=== PATIENT | male | born 1945 | race Caucasian/White ===

== ENCOUNTER 2022-11-16 03:57 | Emergency (ER) | payer MEDICARE, SELFPAY ==
--- NOTE | ~2022-11-16 | CT_ITS ---
EXAMINATION: CT HEAD WITHOUT CONTRAST CT CERVICAL SPINE WITHOUT CONTRAST CLINICAL INFORMATION: Fall. Injury. COMPARISON: None available. TECHNIQUE: Contiguous axial imaging was performed from the skull base to vertex without intravenous administration of contrast. This CT examination was performed using dose optimization techniques as appropriate, variously including the following: *Automated exposure control *Adjustment of mA and/or kV according to patient size (this includes techniques or standardized protocols for targeted exams where dose is matched to indication/reason for exam; i.e. extremities or head) *Use of iterative reconstruction technique DLP: 1250 mGy-cm FINDINGS: There is mild cerebral volume loss with prominence of the lateral and the third ventricles. The cortical sulci are widened appropriately. The fourth ventricle and basal cisterns are normally outlined. There is no acute territorial defect, hemorrhage or midline shift. The bilateral subdural spaces are prominent. There is faint increased subchondral densities bilaterally greater on the right. There is no dense subdural hemorrhage. Cervical spine: The alignment is normal. There is diffuse bgff-fi-gdmyugej cervical disc degenerative change with loss of disc space, endplate change and posterior osteophytes associated with mild facet osteoarthritic hypertrophic change with multilevel zosq-vg-aiocnwgv spinal canal and mild to moderate bilateral neuroforaminal narrowing. There is no fracture. The soft tissues are unremarkable. The upper lung stevens are clear. CT/CT head/brain wo IV con IMPRESSION: Cerebral volume loss. Prominent subdural spaces bilaterally with faint areas of increased density. 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 No dense subdural blood products to suggest an acute subdural hematoma. Cervical disc degenerative change. No fracture or malalignment
--- NOTE | ~2022-11-16 | CT_ITS ---
EXAMINATION: CT HEAD WITHOUT CONTRAST CT CERVICAL SPINE WITHOUT CONTRAST CLINICAL INFORMATION: Fall. Injury. COMPARISON: None available. TECHNIQUE: Contiguous axial imaging was performed from the skull base to vertex without intravenous administration of contrast. This CT examination was performed using dose optimization techniques as appropriate, variously including the following: *Automated exposure control *Adjustment of mA and/or kV according to patient size (this includes techniques or standardized protocols for targeted exams where dose is matched to indication/reason for exam; i.e. extremities or head) *Use of iterative reconstruction technique DLP: 1250 mGy-cm FINDINGS: There is mild cerebral volume loss with prominence of the lateral and the third ventricles. The cortical sulci are widened appropriately. The fourth ventricle and basal cisterns are normally outlined. There is no acute territorial defect, hemorrhage or midline shift. The bilateral subdural spaces are prominent. There is faint increased subchondral densities bilaterally greater on the right. There is no dense subdural hemorrhage. Cervical spine: The alignment is normal. There is diffuse hfpp-ht-ywcxvomn cervical disc degenerative change with loss of disc space, endplate change and posterior osteophytes associated with mild facet osteoarthritic hypertrophic change with multilevel sibg-ra-huzffvru spinal canal and mild to moderate bilateral neuroforaminal narrowing. There is no fracture. The soft tissues are unremarkable. The upper lung stevens are clear. CT/CT cervical spine wo IV con IMPRESSION: Cerebral volume loss. Prominent subdural spaces bilaterally with faint areas of increased density. 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 No dense subdural blood products to suggest an acute subdural hematoma. Cervical disc degenerative change. No fracture or malalignment
--- NOTE | ~2022-11-16 | XR_ITS ---
EXAMINATION: XR PELVIS CLINICAL INFORMATION: Pain COMPARISON: None available. TECHNIQUE: AP view of the pelvis. FINDINGS: The bone mineralization is normal. The joint spaces are fairly well maintained for patient age. There is no fracture. There is lower lumbar disc degenerative change. There are bony densities along both greater trochanters which are likely chronic. Arteriovascular calcification. XR/XR pelvis 1-2V IMPRESSION: No fracture.
[2022-11-16 04:14] VITALS: BP 145/61; PULSE 96; RESP 12; TEMP 37.6; O2SAT 97; BMI 28.7
--- NOTE | 2022-11-16 04:20 | PC.NURSE ---
pt has a chronic benitez cath placed by SAE
--- NOTE | 2022-11-16 04:26 | ED_ITS ---
HPI - Fall General Chief Complaint: Fall Stated Complaint: Fall Time Seen by Provider: 11/16/22 04:22 Source: EMS and RN notes reviewed Mode of arrival: EMS Limitations: altered mental status History of Present Illness HPI Narrative: Patient with dementia came from correction as was found on the floor for 10 minutes before staff found him, patient does not remember what happened denies any significant pain patient came with cervical collar patient does have indwelling Gray catheter no fever no vomiting patient is at baseline Related Data Previous Rx's Medication Instructions Recorded cefuroxime axetil 250 mg tablet 250 mg PO BID 7 days #14 tabs 11/16/22 Allergies Allergy/AdvReac Type Severity Reaction Status Date / Time atorvastatin Allergy Unknown Verified 11/16/22 04:27 glipizide Allergy Unknown Verified 11/16/22 04:27 Review of Systems Review of Systems: Yes all other systems are reviewed and are negative [facility] Social History Social History Alcohol intake: never Smoked in Last 30 Days: No Use of substances other than those prescribed or required for medical reasons: Unknown Advance Directives: No Advance Directives Information Provided: Yes Physical Exam Vital Signs: Vital Signs: Last Vital Signs Temp 98.8 F 11/16/22 06:13 Pulse 79 11/16/22 06:13 Resp 13 11/16/22 06:13 BP 130/63 11/16/22 06:13 Pulse Ox 100 11/16/22 06:13 O2 Del Method Room Air 11/16/22 06:13 BMI result Body Mass Index 28.7 Appearance: Alert. Oriented X2. No acute distress. Eyes: PERRLA, No Nystagmus ENT: Pharynx normal. Oral Mucosa moist Neck: Normal inspection. Neck supple. No midline tenderness cervical collar in place CVS: Normal heart rate and rhythm. Pulses normal. Respiratory: No respiratory distress. Equal air entry bilateral, no wheezing/rales/rhonchi Abdomen: Soft and nontender. Bowel sounds are present, no mass palpable, no CVA tenderness Skin: Skin warm and dry. Normal skin color. Normal skin turgor. Extremities: No lower extremity edema. No calf tenderness Neuro: Oriented X 2. No motor deficit. No sensory deficit.No cerebellar signs , cranial nerves II-XII intact Medications Administered Discontinued Medications Generic Name Dose Route Start Last Admin Trade Name Freq PRN Reason Stop Dose Admin Cefuroxime Axetil 250 mg 11/16/22 06:09 11/16/22 06:18 Cefuroxime Axetil 250 Mg Tablet PO 11/16/22 06:10 250 mg ONCE ONE Administration Medical Decision Making Medical Decision Making [facility] Narrative: Patient's CT scans are negative workup showed WBCs in the urine does have a chronic indwelling Gray catheter not on antibiotics asymptomatic at this time previous culture report is not available will give patient Ceftin, advised to follow-up with PCP and follow with the cultures Differential Diagnosis Differential Diagnoses: The differential diagnosis associated with the presentation includes Subdural hematoma/surgically fractures/UTI/weakness Admission/Observation Consideration of admission/observation: Escalation of care including admissio n/observation considered Lab Data [facility] Lab Attestation statement: I reviewed the patient's lab results. 11/16/22 05:04 11/16/22 05:04 Labs: Lab Results 11/16/22 11/16/22 11/16/22 Range/Units 04:59 05:04 05:04 WBC 6.4 (4.8-10.8) X10*3/uL RBC 3.72 L (4.60-5.80) X10*6/uL Hgb 11.3 L (14.0-18.0) g/dl Hct 34.2 L (42.0-52.0) % MCV 91.9 (80.0-98.0) fL MCH 30.4 (27.0-33.0) pg MCHC 33.0 (31.0-36.0) g/dl RDW 12.9 (11.0-16.0) % Plt Count 174 D (160-400) X10*3/uL MPV 8.7 L (9.4-12.4) fL Immature Gran % (Auto) 0.3 (0.0-0.4) % Neut % (Auto) 87.0 H (45-73) % Lymph % (Auto) 5.3 L (20-40) % Harvey % (Auto) 6.1 (2-11) % Eos % (Auto) 0.5 (0-4) % Baso % (Auto) 0.8 (0-2) % Lymph # (Auto) 0.3 L (1.2-4.9) X10*3/uL Harvey # (Auto) 0.4 (0.1-1.2) X10*3/uL Eos # (Auto) 0.0 (0.0-0.4) X10*3/uL Baso # (Auto) 0.1 (0.0-0.2) X10*3/uL Abs Immat Gran (auto) 0.02 (0.00-0.03) X10*3/uL Absolute Neuts (auto) 5.6 (2.0-8.3) x10*3/uL Absolute Nucleated RBC 0.000 (0.0-0.012) X10*3/uL Nucleated RBC % (auto) 0.0 (0.0-0.2) /100WBC Sodium 143 (135-145) mmol/L Potassium 4.2 (3.3-5.1) mmol/L Chloride 107 (96-108) mmol/L Carbon Dioxide 26 (22-29) mmol/L Anion Gap 14 (12-20) BUN 34 H (9-16) mg/dL Creatinine 1.68 H (0.5-1.4) mg/dL Estim Creat Clear Calc 42.3 Estimated GFR 40 Random Glucose 140 H (60-115) mg/dL Calcium 9.8 (8.4-10.2) mg/dL Magnesium 1.5 L (1.6-2.6) mg/dL Total Bilirubin 0.8 (0.0-1.0) mg/dL AST 9 (5-37) U/L ALT 9 (0-40) U/L Alkaline Phosphatase 73 (39-117) U/L Total Protein 6.2 L (6.5-8.0) g/dL Albumin 3.5 (3.5-5.0) g/dL Urine Color Yellow Urine Appearance Turbid Urine pH 6.5 (5.0-9.0) Ur Specific [place] 1.015 (1.005-1.025) Urine Protein 100 (2+) H (Neg-Trace) mg/dL Urine Glucose (UA) Negative (Negative) mg/dL Urine Ketones Negative (Negative) mg/dL Urine Blood Large (3+) H (Negative) Urine Nitrite Negative (Negative) Ur Leukocyte Esterase Large (3+) H (Negative) Urine RBC >20 H (0-2) /HPF Urine WBC >50 H (0-5) /HPF Ur Squamous Epith Cells 0-2 (0-2) /HPF Urine Bacteria 2+ (None Seen) Hyaline Casts 0-2 (0-2) /LPF Independent Interpretation I performed an independent interpretation of an: CT Scan Radiology Impression Discussion of test interpretation with radiology: I have reviewed the radiologist's reading. Radiologist Impression: [address] [address] XRay Report Signed Patient: Deepak Anderson MR#: [id number] : 1945 Acct:[id number] Age/Sex: 77 / M ADM Date: 11/16/22 Loc: .ED Attending Dr: Ordering Physician: Rah Aden MD Date of Service: 11/16/22 Procedure(s): XR pelvis 1-2V Accession Number(s): [id number] cc: AMERICO PAK MD; Rah Aden MD~ EXAMINATION: XR PELVIS CLINICAL INFORMATION: Pain? COMPARISON: None available.? TECHNIQUE: AP view of the pelvis. FINDINGS: The bone mineralization is normal. The joint spaces are fairly well maintained for patient age. There is no fracture. There is lower lumbar disc degenerative change. There are bony densities along both greater trochanters which are likely chronic. Arteriovascular calcification.? XR/XR pelvis 1-2V IMPRESSION: No fracture. ? ? [address] [address] [address] Scan Report Signed Patient: Deepak Anderson MR#: [id number] : 1945 Acct:[id number] Age/Sex: 77 / M ADM Date: 11/16/22 Loc: .ED Attending Dr: Ordering Physician: Rah Aden MD Date of Service: 11/16/22 Procedure(s): CT cervical spine wo IV con Accession Number(s): [id number] cc: AMERICO PAK MD; Rah Aden MD~ EXAMINATION: CT HEAD WITHOUT CONTRAST CT CERVICAL SPINE WITHOUT CONTRAST CLINICAL INFORMATION: Fall. Injury.? COMPARISON: None available. TECHNIQUE: Contiguous axial imaging was performed from the skull base to vertex without intravenous administration of contrast. This CT examination was performed using dose optimization techniques as appropriate, variously including the following: *Automated exposure control *Adjustment of mA and/or kV according to patient size (this includes techniques or standardized protocols for targeted exams where dose is matched to indication/reason for exam; i.e. extremities or head) *Use of iterative reconstruction technique DLP: 1250 mGy-cm FINDINGS: There is mild cerebral volume loss with prominence of the lateral and the third ventricles. The cortical sulci are widened appropriately. The fourth ventricle and basal cisterns are normally outlined. There is no acute territorial defect, hemorrhage or midline shift. The bilateral subdural spaces are prominent. There is faint increased subchondral densities bilaterally greater on the right. There is no dense subdural hemorrhage. Cervical spine: The alignment is normal. There is diffuse uefj-vj-bubgdvzc cervical disc degenerative change with loss of disc space, endplate change and posterior osteophytes associated with mild facet osteoarthritic hypertrophic change with multilevel kfnk-gn-htpagxbc spinal canal and mild to moderate bilateral neuroforaminal narrowing. There is no fracture. The soft tissues are unremarkable. The upper lung stevens are clear. ? CT/CT cervical spine wo IV con IMPRESSION: Cerebral volume loss. Prominent subdural spaces bilaterally with faint areas of increased density. 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 ? No dense subdural blood products to suggest an acute subdural hematoma. ? Cervical disc degenerative change. ? No fracture or malalignment Discharge Plan Discharge Clinical Impression: Fall, UTI (urinary tract infection) due to urinary indwelling catheter Patient Disposition: Xfer [facility] Transfer Details: Patient's CT scan of the head, C-spine negative for any acute, x-ray of the pelvis negative for fracture, workup showed UTI with nitrite negative, will prescribe Ceftin 250 mg twice daily for 7 days advised to follow-up with PCP and the culture results Instructions: Urinary Tract Infection in Men (ED), Fall Prevention for Older A dults (ED) Additional Instructions: Fall precautions advised Give patient antibiotics as prescribed Follow with PCP Prescriptions: New cefuroxime axetil 250 mg tablet 250 mg PO BID 7 Days Qty: 14 0RF
[2022-11-16 05:09] LABS: Basophils Absolute Auto 0.1 X10*3/uL (0.0-0.2); Basophils Percent Auto 0.8 % (0-2); Eosinophils Percent Auto 0.5 % (0-4); Hematocrit 34.2 % (42.0-52.0); Hemoglobin 11.3 g/dl (14.0-18.0); Imm Gran Abs Auto 0.02 X10*3/uL (0.00-0.03); Imm Gran Pct Auto 0.3 % (0.0-0.4); Lymphocytes Absolute Auto 0.3 X10*3/uL (1.2-4.9); Lymphocytes Percent Auto 5.3 % (20-40); MANUAL DIFF FLAG NO; Mean Corpuscular Hemoglobin 30.4 pg (27.0-33.0); Mean Corpuscular Volume 91.9 fL (80.0-98.0); Mean Platelet Volume 8.7 fL (9.4-12.4); Monocytes Absolute Auto 0.4 X10*3/uL (0.1-1.2); Monocytes Percent Auto 6.1 % (2-11); Neutrophils Absolute Auto 5.6 x10*3/uL (2.0-8.3); Platelet Count 174 X10*3/uL (160-400); Red Blood Count 3.72 X10*6/uL (4.60-5.80); Red Cell Distribution Width 12.9 % (11.0-16.0); White Blood Count 6.4 X10*3/uL (4.8-10.8)
[2022-11-16 05:10] LABS: Appearance Urine Turbid; Color Urine Yellow; Glucose Urine UA Negative (Negative); Leukocyte Esterase Urine Large (3+) (Negative); Nitrite Urine Negative (Negative); PH 6.5 (5.0-9.0); Specific Gravity - Urine 1.015 (1.005-1.025); UMIC TRIGGER UACC YES; Urine Blood Large (3+) (Negative); Urine Ketones Negative (Negative); Urine Protein 100 (2+) mg/dL (Neg-Trace)
[2022-11-16 05:15] LABS: Bacteria Urine 2+ (None Seen); Hyaline Casts Urine 0-2 /LPF (0-2); RBC Urine >20 /HPF (0-2); Squamous Epithelial Cell Urine 0-2 /HPF (0-2); UACC Culture Trigger YES; WBC Urine >50 /HPF (0-5)
[2022-11-16 05:28] LABS: Alanine Aminotransferase 9 U/L (0-40); Albumin Level 3.5 g/dL (3.5-5.0); Alkaline Phosphatase 73 U/L (39-117); Anion Gap 14 (12-20); Aspartate Amino Transferase 9 U/L (5-37); Bilirubin Total 0.8 mg/dL (0.0-1.0); Blood Urea Nitrogen 34 mg/dL (9-16); Calcium 9.8 mg/dL (8.4-10.2); Carbon Dioxide 26 mmol/L (22-29); Chloride 107 mmol/L (96-108); Creatinine Clr Calc Pharmacy 42.3; Estimated Glomerular Filt Rate 40; Glucose Random 140 mg/dL (60-115); Magnesium 1.5 mg/dL (1.6-2.6); Potassium 4.2 mmol/L (3.3-5.1); Sodium 143 mmol/L (135-145); Total Protein 6.2 g/dL (6.5-8.0)
[2022-11-16 06:13] VITALS: BP 130/63; PULSE 79; RESP 13; TEMP 37.1; O2SAT 100
--- NOTE | 2022-11-16 06:58 | MHC.EDTECH ---
Call out to [facility]per at [phone] to book transport for pt back to [facility] [place], estimated eta given was within the hour
--- NOTE | 2022-11-16 07:29 | PC.NURSE ---
report given to nurse at [facility]
== END 2022-11-16 07:29 | disposition skilled nursing facility (03) ==
PROVIDERS: Emergency Provider Internal Medicine; PCP Family Medicine
DX: S09.90XA Unspecified injury of head, initial encounter (principal); M54.2 Cervicalgia; R51.9 Headache, unspecified; R10.2 Pelvic and perineal pain; W01.0XXA Fall on same level from slipping, tripping and stumbling without subsequent striking against object, initial encounter; Y93.9 Activity, unspecified; Y92.410 Unspecified street and highway as the place of occurrence of the external cause; Y99.9 Unspecified external cause status; Z79.899 Other long term (current) drug therapy
CPT/HCPCS: 36415; 70450; 72125; 72170; 80053; 81001; 83735; 85025; 87086; 99284

== ENCOUNTER 2023-01-24 02:19 | Emergency (ER) | payer MEDICARE, SELFPAY ==
[2023-01-24 02:42] VITALS: BP 132/68; BP 139/60; PULSE 58; PULSE 98; RESP 16; TEMP 36.6; O2SAT 97; O2SAT 99; BMI 22.1
--- NOTE | 2023-01-24 02:52 | PC.NURSE ---
Pt BIBA from [facility] care for pulling out Benitez catheter with balloon still inflated. When faclity RN attempted to replace catheter and reinflate balloon the patient was having pain. Per facility RN, patient had bleeding when benitez cath was removed. Pt alert and oriented to self at times. VSS< red non-blanchable coccyx. Barrier cream and pink foam dressing applied.
--- NOTE | 2023-01-24 03:00 | ED.MALEGU ---
HPI - Male Genitourinary General Chief complaint: Urogenital-Male Stated complaint: pulled benitez out Time Seen by Provider: 01/24/23 02:59 Source: EMS Mode of arrival: EMS Limitations: altered mental status History of Present Illness HPI Narrative: Patient with dementia and reportedly his catheter RN unable to place Benitez catheter , came here for Benitez catheter replacement no change in his baseline no fever Related Data Previous Rx's Medication Instructions Recorded cefuroxime axetil 250 mg tablet 250 mg PO BID 7 days #14 tabs 11/16/22 Allergies Allergy/AdvReac Type Severity Reaction Status Date / Time atorvastatin Allergy Unknown Verified 01/24/23 02:39 glipizide Allergy Unknown Verified 01/24/23 02:39 Review of Systems Review of Systems: Yes Unobtainable due to mental status [facility] Social History Social History Alcohol intake: never Smoked in Last 30 Days: No Use of substances other than those prescribed or required for medical reasons: No Any prior treatment program specific to substance use: No Advance Directives: No Advance Directives Information Provided: No Physical Exam Vital Signs: Vital Signs: Last Vital Signs Temp 97.9 F 01/24/23 02:42 Pulse 58 01/24/23 02:42 Resp 16 01/24/23 02:42 BP 139/60 01/24/23 02:42 Pulse Ox 99 01/24/23 02:42 O2 Del Method Room Air 01/24/23 02:42 BMI result Body Mass Index 22.1 Appearance: Alert. Demented Eyes: PERRLA, No Nystagmus ENT: Pharynx normal. Oral Mucosa moist Neck: Normal inspection. Neck supple. CVS: Normal heart rate and rhythm. Pulses normal. Respiratory: No respiratory distress. Equal air entry bilateral, Abdomen: Soft and nontender. Bowel sounds are present, no mass palpable, no CVA tenderness Skin: Skin warm and dry. Normal skin color. Normal skin turgor. Extremities: No lower extremity edema. No calf tenderness Neuro: alert with dementia moving all 4 extremities Medications Administered Discontinued Medications Generic Name Dose Route Start Last Admin Trade Name Freq PRN Reason Stop Dose Admin Lidocaine HCl 10 ml 01/24/23 02:59 01/24/23 03:04 Lidocaine Hcl 2 % Urojet 10 Ml Jel.Pf.Sri TOPICAL 01/24/23 03:00 10 ml ONCE ONE Administration Medical Decision Making Medical Decision Making [facility] Narrative: Benitez catheter replaced by the RN 16 [place] draining clear urine [facility] showed with elevated wbc's with no bacteria, previous cultures were negative on 11/16 Lab Data [facility] Lab Attestation statement: I reviewed the patient's lab results. Labs: Lab Results 01/24/23 Range/Units 03:20 Urine Color Yellow Urine Appearance Clear Urine pH 5.5 (5.0-9.0) Ur Specific [place] 1.015 (1.005-1.025) Urine Protein Negative (Neg-Trace) mg/dL Urine Glucose (UA) Negative (Negative) mg/dL Urine Ketones Negative (Negative) mg/dL Urine Blood Small (1+) H (Negative) Urine Nitrite Negative (Negative) Ur Leukocyte Esterase Small (1+) H (Negative) Urine RBC 6-10 H (0-2) /HPF Urine WBC 21-50 H (0-5) /HPF Ur Squamous Epith Cells 0-2 (0-2) /HPF Urine Bacteria None Seen (None Seen) Hyaline Casts 0-2 (0-2) /LPF Discharge Plan Discharge Clinical Impression: Encounter for Benitez catheter replacement Patient Disposition: Xfer [facility] Transfer Details: 16 [place] Benitez catheter was placed without any difficulty UA negative for bacteria Instructions: Benitez Catheter Placement and Care (ED) Prescriptions: No Action cefuroxime axetil 250 mg tablet 250 mg PO BID 7 Days Qty: 14 0RF Interventions: ED Discharge Assessment Last Done: 01/24/23 04:25 Discharge Date/Time: 01/24/23 04:25
[2023-01-24] MEDS: Lidocaine HCl 2 % Urojet 10 ML JEL.PF.APP TOPICAL (03:04)
--- NOTE | 2023-01-24 03:25 | PC.NURSE ---
This RN placed 16F benitez cath, pt tolerated fairly well, with minimal discomfort. Lidocaine uro-jet used as ordered. UA sent down to lab. Benitez cath tubing secure in place.
[2023-01-24 03:28] LABS: Appearance Urine Clear; Color Urine Yellow; Glucose Urine UA Negative (Negative); Leukocyte Esterase Urine Small (1+) (Negative); Nitrite Urine Negative (Negative); PH 5.5 (5.0-9.0); Specific Gravity - Urine 1.015 (1.005-1.025); UMIC TRIGGER UACC YES; Urine Blood Small (1+) (Negative); Urine Ketones Negative (Negative); Urine Protein Negative (Neg-Trace)
[2023-01-24 03:32] LABS: Bacteria Urine None Seen (None Seen); Hyaline Casts Urine 0-2 /LPF (0-2); Squamous Epithelial Cell Urine 0-2 /HPF (0-2); UACC Culture Trigger YES; WBC Urine 21-50 /HPF (0-5)
--- NOTE | 2023-01-24 03:40 | MHC.EDTECH ---
call out to [facility]ier at [phone] to book transport for pt back to SNF, estimated eta given was [phone]
== END 2023-01-24 04:25 | disposition skilled nursing facility (03) ==
PROVIDERS: Emergency Provider Internal Medicine; PCP Family Medicine
DX: T83.028A Displacement of other urinary catheter, initial encounter (principal); Y73.8 Miscellaneous gastroenterology and urology devices associated with adverse incidents, not elsewhere classified; Y92.129 Unspecified place in nursing home as the place of occurrence of the external cause; D72.829 Elevated white blood cell count, unspecified; E11.9 Type 2 diabetes mellitus without complications; G30.9 Alzheimer's disease, unspecified; F02.80 Dementia in other diseases classified elsewhere, unspecified severity, without behavioral disturbance, psychotic disturbance, mood disturbance, and anxiety; Z87.440 Personal history of urinary (tract) infections
CPT/HCPCS: 51702; 81001; 87086; 99284

== ENCOUNTER 2023-02-01 14:40 | Inpatient (IN) | payer MEDICARE, SELFPAY ==
--- NOTE | ~2023-02-01 | MR_ITS ---
EXAMINATION: MR BRAIN WITHOUT CONTRAST CLINICAL INFORMATION: Seizure. COMPARISON: Head CT 02/01/2023. TECHNIQUE: Multiplanar, multisequence imaging of the brain was performed without intravenous contrast. The exam is moderate to severely motion degraded. FINDINGS: There is no acute infarction, hemorrhage, or mass. There are bilateral cerebral convexity subdural collections in the frontoparietal and temporal regions measuring up to 9 mm resulting in mild mass effect. Some susceptibility signal foci are noted along the bilateral cerebral convexities presumably related to MMA embolization. There is no midline shift or herniation. There is moderate degree of diffuse brain parenchymal volume loss with prominence of the ventricles and sulci. Mild chronic microangiopathic changes are seen within the cerebral white matter. The major arterial flow voids are preserved at the skull base. There are bilateral lens replacements. The extracranial structures are within normal limits. MR/MR head/brain wo con IMPRESSION: No acute intracranial abnormality. Bilateral cerebral convexity subdural collections measuring up to 9 mm resulting in mild mass effect. No midline shift or herniation. Moderate degree of diffuse brain parenchymal volume loss.
--- NOTE | ~2023-02-01 | CT_ITS ---
EXAMINATION: CT HEAD WITHOUT CONTRAST CLINICAL INFORMATION: Weakness. Altered mental status. COMPARISON: CT head from 11/16/2022. TECHNIQUE: Contiguous axial imaging was performed from the skull base to vertex without intravenous administration of contrast. This CT examination was performed using dose optimization techniques as appropriate, variously including the following: *Automated exposure control. *Adjustment of mA and/or kV according to patient size (this includes techniques or standardized protocols for targeted exams where dose is matched to indication/reason for exam; i.e. extremities or head). *Use of iterative reconstruction technique. DLP: 673 mGy-cm FINDINGS: Chronic bihemispheric hypoattenuating subdural collections, measuring up to 0.5 cm in depth on the right and 0.3 cm in depth on the left. Changes of middle meningeal artery embolization bilaterally. There is no evidence of acute intracranial hemorrhage or edematous territorial infarction. Ng-white matter differentiation is preserved. Scattered and partially confluent hypoattenuation in the periventricular and deep white matter are consistent with moderate microangiopathy. The ventricles are normal in morphology and size. No evidence for obstructive hydrocephalus. No abnormal mass effect or midline shift. No extra-axial fluid collections. Small subgaleal hematoma along the right parietal bone, measuring up to 0.4 cm in depth. No acute osseous abnormalities. Mild mucosal thickening of the paranasal sinuses. Mild rightward nasal septal deviation. The mastoid air cells and middle ear cavities are clear. Bilateral lens extractions. CT/CT head for stroke IMPRESSION: 1. No evidence of acute intracranial hemorrhage or edematous territorial infarction. 2. Chronic bihemispheric subdural collections with changes of bilateral middle meningeal artery embolization. 3. Moderate underlying microangiopathy and generalized cerebral volume loss. 4. Small right parietal scalp hematoma. No associated osseous abnormalities. This critical result was discussed with JOCELYNE Ruiz at 15:40 on 02/01/2023 and it was ascertained that the content and urgency of the report was understood at the time of direct communication.
--- NOTE | 2023-02-01 14:42 | ECG_ITS ---
Test Reason : seizure Blood Pressure : / mmHG Vent. Rate : 071 BPM Atrial Rate : 071 BPM P-R Int : 258 ms QRS Dur : 100 ms QT Int : 376 ms P-R-T Axes : 038 -63 071 degrees QTc Int : 408 ms Sinus rhythm with 1st degree A-V block Left anterior fascicular block Incomplete right bundle branch block Low voltage QRS Nonspecific T wave abnormality Abnormal ECG No previous ECGs available Referred By: Johnathon Herbert Electronically Signed By:DIPAK LEWIS MD
--- NOTE | 2023-02-01 14:43 | ED.GENADULT ---
HPI - General Adult General Chief complaint: Seizure Stated complaint: FAST4,LKWT 1405,L DROOP/DRIFT/SPEECH,FROM SNF Time Seen by Provider: 02/01/23 14:52 Source: EMS and old records reviewed Mode of arrival: EMS Limitations: other (nonverbal ) History of Present Illness HPI narrative: 77-year-old male history of type 2 diabetes, Alzheimer's disease, CKD, hyperlipidemia, hypertension, ptosis of unspecified eye, urinary retention, frequent falls, syncope presents with left-sided facial droop, slurred speech, weakness coming from long term facility according to staff from nursing facility and report obtained from EMS at 02:05, patient was getting ambulated to the bathroom, and suddenly started having diffuse left-sided weakness, slurred speech, facial droop. He had 1 seizure prior to arrival unclear how long it lasted. No known history of seizures. Not on blood thinners. No reported trauma. Patient unable to give me history, nonverbal at baseline and appears to be seizing. Immediately IV lorazepam and administered. Prior to getting here he had a fast ED score of 4 Unable to obtain NIH stroke scale secondary to patient not following commands. Related Data Previous Rx's Medication Instructions Recorded cefuroxime axetil 250 mg tablet 250 mg PO BID 7 days #14 tabs 11/16/22 Allergies Allergy/AdvReac Type Severity Reaction Status Date / Time atorvastatin Allergy Unknown Verified 01/24/23 02:39 glipizide Allergy Unknown Verified 01/24/23 02:39 Review of Systems Review of Systems: Yes Unobtainable due to mental status PMFSH Past Medical History Attestation statement: The following information was validated with the patient. Source: old records reviewed and nursing notes reviewed Social History Social History Alcohol intake: never Advance Directives: No Advance Directives Information Provided: No Physical Exam ED Vital Signs: Vital Signs - 24 hr 02/01/23 14:53 02/01/23 14:57 02/01/23 16:05 Temperature 97.8 F Pulse Rate 82 76 58 Respiratory Rate 13 17 16 Blood Pressure 122/60 112/59 L 133/60 Pulse Oximetry 98 99 98 Oxygen Delivery Method Room Air Room Air Room Air BMI result Body Mass Index 23.0 vss Appearance: Alert.? Oriented X0.? No acute distress. Patient appears cachectic? Head: Normocephalic, atraumatic, no step-offs or deformities + hematoma to top of head Eyes: Pupils equal, round and reactive to light.? Neck: Normal inspection.? Neck supple.? CVS: Normal heart rate and rhythm.? Pulses normal.? Respiratory: No respiratory distress.? Breath sounds normal.? Abdomen: Soft and nontender.? Skin: Skin warm and dry.? Normal skin color.? Normal skin turgor.? Extremities: No lower extremity edema.? Global weakness. Moving all extremities. Neuro: Oriented X 0.? Unable to follow commands. Unable to obtain accurate NIH stroke scale. Course Reevaluation(s) Reevaluation #1: Patient responded well to ativan no longer seizing. Time: 14:45 Reevaluation #2: Labs pending. Patient now speaking but not making much sense. Time: 15:28 Reevaluation #3: CBC appears to be around patients baseline. Chemistry pending. Time: 15:35 Additional Reevaluation(s): 1539- [facility] radiology called Dr. Gonzalez, chronic b/l subdural hemorrhages no acute findings. Discussed case with my attending doesn't feel like CTA is needed at this time. Will admit for new onset seizure. Patients mentation is improving my attending Dr. Huerta evaluated patient 1545- Spoke to Jonnathan (next of kin, legal gaurdian, healthcare proxy) who tells me usually patient usually is able to people his name however not his birthday or how old he is. He reports patient has a hx of aneurysm and was for a few days because of heart attack per jaswant. He would not like patinet to have the CTA as there is concern for worsening kidney injury, patient doesnt want invasive measures and the michaeldian agrees with this he would like patient admitted for new onset seizures. Guardian also tellls me patient has been borderline suicidal due to moments of clarity when he has these moments he says he is miserable and suffering. Patients jaswant will come vist. DNR/DNI w/ no invasive measures. Melissa Dwyer LPN here as whiteness to this conversation. Will reach out to the hospitalist at this time. UA pending 1652: + urine ceftriaxone ordered, cultures and lactic ordered. Will hold on large amount of fluids due to patients age and commodities. Spoke to Dr. Milner hospitalist who is aware waiting for patients guardian to arrive he tells me to do the admission. Medications Administered Discontinued Medications Generic Name Dose Route Start Last Admin Trade Name Augustine PRN Reason Stop Dose Admin Levetiracetam 1,500 mg in 100 mls @ 400 mls/hr 02/01/23 14:42 02/01/23 15:05 Keppra IV 02/01/23 14:56 Infused ONCE ONE Infusion Ceftriaxone Sodium 1 gm/ 50 mls @ 100 mls/hr 02/01/23 16:20 02/01/23 16:42 Sodium Chloride IV 02/01/23 16:49 100 mls/hr ONCE ONE Administration Lorazepam 2 mg 02/01/23 14:42 02/01/23 14:48 Lorazepam 2 Mg/Ml Vial IM 02/01/23 14:43 2 mg STAT STA Administration Lorazepam 0.25 mg 02/01/23 15:54 02/01/23 16:04 Lorazepam 2 Mg/Ml Vial IVPUSH 02/01/23 15:55 0.25 mg STAT STA Administration Medical Decision Making Medical Decision Making [facility] Narrative: 1440 77 year old male presents for left-sided weakness at long term facility arrive seizing. PE A&O X 0, cachectic appearing. Hematoma to top of head. Regular rate and rhythm. Lungs clear. Abdomen soft nontender nondistended. Unable to obtain accurate neurological assessment due to patient not being able to follow commands. Patient comes in starts seizing, IM Ativan ordered. Will also give Depakote. Patient not a candidate for tPA secondary to seizure. Concerns for spontaneous head bleed versus seizure versus complex migraine. Will rule out metabolic derangements, UTI. Plan- labs, imaging, urine. Patient controlling airway no need for airway managment DNR/DNI My attending at the bedside agrees w/ plan. Differential Diagnosis Differential Diagnoses: The differential diagnosis associated with the presentation includes Concerns for spontaneous head bleed versus seizure versus complex migraine. Will rule out metabolic derangements, UTI. Lab Data [facility] Lab Attestation statement: I reviewed the patient's lab results. 02/01/23 15:04 02/01/23 15:04 Labs: Lab Results 02/01/23 02/01/23 02/01/23 Range/Units 14:45 15:04 15:42 WBC 10.1 (4.8-10.8) X10*3/uL RBC 4.06 L (4.60-5.80) X10*6/uL Hgb 12.3 L (14.0-18.0) g/dl Hct 36.9 L (42.0-52.0) % MCV 90.9 (80.0-98.0) fL MCH 30.3 (27.0-33.0) pg MCHC 33.3 (31.0-36.0) g/dl RDW 14.0 (11.0-16.0) % Plt Count 173 (160-400) X10*3/uL MPV 10.0 (9.4-12.4) fL Immature Gran % (Auto) 0.3 (0.0-0.4) % Neut % (Auto) 85.4 H (45-73) % Lymph % (Auto) 8.1 L (20-40) % [place] % (Auto) 4.6 (2-11) % Eos % (Auto) 1.1 (0-4) % Baso % (Auto) 0.5 (0-2) % Lymph # (Auto) 0.8 L (1.2-4.9) X10*3/uL [place] # (Auto) 0.5 (0.1-1.2) X10*3/uL Eos # (Auto) 0.1 (0.0-0.4) X10*3/uL Baso # (Auto) 0.1 (0.0-0.2) X10*3/uL Abs Immat Gran (auto) 0.03 (0.00-0.03) X10*3/uL Absolute Neuts (auto) 8.7 H (2.0-8.3) x10*3/uL Absolute Nucleated RBC 0.000 (0.0-0.012) X10*3/uL Nucleated RBC % (auto) 0.0 (0.0-0.2) /100WBC PT 11.6 (11.1-13.3) SEC Whole Blood PT 14.1 H (11.1-13.5) sec INR 1.0 (0.9-1.1) Whole Blood INR 1.2 H (0.9-1.1) APTT 30.4 (26.0-36.4) SEC Sodium 142 (135-145) mmol/L Potassium 3.7 (3.3-5.1) mmol/L Chloride 108 (96-108) mmol/L Carbon Dioxide 26 (22-29) mmol/L Anion Gap 12 (12-20) BUN 27 H (9-16) mg/dL Creatinine 1.20 (0.5-1.4) mg/dL Estim Creat Clear Calc 55.4 Estimated GFR 59 Random Glucose 118 H (60-115) mg/dL Calcium 9.2 D (8.4-10.2) mg/dL Total Creatine Kinase 34 L (38-174) U/L Troponin I High Sens 9.6 (<3.5-35.0) ng/L Urine Color Yellow Urine Appearance Turbid Urine pH 5.5 (5.0-9.0) Ur Specific [place] 1.020 (1.005-1.025) Urine Protein 100 (2+) H (Neg-Trace) mg/dL Urine Glucose (UA) Negative (Negative) mg/dL Urine Ketones Negative (Negative) mg/dL Urine Blood Small (1+) H (Negative) Urine Nitrite Positive H (Negative) Ur Leukocyte Esterase Large (3+) H (Negative) Urine RBC 3-5 H (0-2) /HPF Urine WBC >50 (0-5) /HPF Ur Squamous Epith Cells 0-2 (0-2) /HPF Urine Bacteria 4+ (None Seen) Hyaline Casts 6-10 (0-2) /LPF Granular Casts Present Independent Interpretation I performed an independent interpretation of an: CT Scan (CT/CT head for stroke IMPRESSION: 1. No evidence of acute intracranial hemorrhage or edematous territorial infarction. 2. Chronic bihemispheric subdural collections with changes of bilateral middle meningeal artery embolization. 3. Moderate underlying microangiopathy and generalized cerebral volu) Radiology Impression Discussion of test interpretation with radiology: I have reviewed the radiologist's reading. Critical Care Time Critical Care Time Critical Care Time: Yes Total Critical Care Time: 45 Attestation: I attest to this time spent taking care of the patient, obtaining history, physical, reviewing labs, imaging, speaking to my attending, speaking to specialist. Discharge Plan Discharge Clinical Impression: Left-sided weakness, Seizure, Acute UTI Patient Disposition: Admitted As Inpatient Prescriptions: No Action cefuroxime axetil 250 mg tablet 250 mg PO BID 7 Days Qty: 14 0RF
[2023-02-01] MEDS: levETIRAcetam in NaCl (iso-os) 1,500 MG/100 ML PIGGYBACK 400 MG IV (14:48)
[2023-02-01] MEDS: LORazepam 2 MG/ML VIAL IM (14:48)
[2023-02-01 14:49] LABS: Prothrombin Time Whole Bld POC 14.1 sec (11.1-13.5); ~PT, ~INR - Anti Coag Clinic 1.2 (0.9-1.1)
[2023-02-01 14:51] VITALS: BMI 23.0
[2023-02-01 14:53] VITALS: BP 122/60; PULSE 82; RESP 13; O2SAT 98; BMI 23.0
[2023-02-01 14:55] VITALS: BP 155/80; PULSE 78; O2SAT 98
[2023-02-01 14:57] VITALS: BP 112/59; PULSE 76; RESP 17; TEMP 36.6; O2SAT 99
--- NOTE | 2023-02-01 14:59 | PC.NURSE ---
right pupil sluggish in response, left pupil slightly better but not at baseline
[2023-02-01 15:15] LABS: MANUAL DIFF FLAG NO
[2023-02-01 15:28] LABS: Basophils Absolute Auto 0.1 X10*3/uL (0.0-0.2); Basophils Percent Auto 0.5 % (0-2); Eosinophils Absolute Auto 0.1 X10*3/uL (0.0-0.4); Eosinophils Percent Auto 1.1 % (0-4); Hematocrit 36.9 % (42.0-52.0); Hemoglobin 12.3 g/dl (14.0-18.0); Imm Gran Abs Auto 0.03 X10*3/uL (0.00-0.03); Imm Gran Pct Auto 0.3 % (0.0-0.4); Lymphocytes Absolute Auto 0.8 X10*3/uL (1.2-4.9); Lymphocytes Percent Auto 8.1 % (20-40); Mean Corpuscular HGB Conc 33.3 g/dl (31.0-36.0); Mean Corpuscular Hemoglobin 30.3 pg (27.0-33.0); Mean Corpuscular Volume 90.9 fL (80.0-98.0); Monocytes Absolute Auto 0.5 X10*3/uL (0.1-1.2); Monocytes Percent Auto 4.6 % (2-11); Neutrophils Absolute Auto 8.7 x10*3/uL (2.0-8.3); Neutrophils Percent Auto 85.4 % (45-73); Platelet Count 173 X10*3/uL (160-400); Red Blood Count 4.06 X10*6/uL (4.60-5.80); White Blood Count 10.1 X10*3/uL (4.8-10.8)
[2023-02-01 15:31] LABS: Prothrombin Time 11.6 SEC (11.1-13.3)
[2023-02-01 15:34] LABS: Partial Thromboplastin Time 30.4 SEC (26.0-36.4)
[2023-02-01 15:38] LABS: Stroke Lab Use COMPLETE
[2023-02-01 15:40] LABS: Troponin-I High Sensitivity 9.6 ng/L (<3.5-35.0)
[2023-02-01 15:41] LABS: Anion Gap 12 (12-20); Blood Urea Nitrogen 27 mg/dL (9-16); Calcium 9.2 mg/dL (8.4-10.2); Carbon Dioxide 26 mmol/L (22-29); Chloride 108 mmol/L (96-108); Creatinine Clr Calc Pharmacy 55.4; Estimated Glomerular Filt Rate 59; Glucose Random 118 mg/dL (60-115); Potassium 3.7 mmol/L (3.3-5.1); Sodium 142 mmol/L (135-145)
[2023-02-01 15:51] LABS: Appearance Urine Turbid; Color Urine Yellow; Glucose Urine UA Negative (Negative); Leukocyte Esterase Urine Large (3+) (Negative); Nitrite Urine Positive (Negative); PH 5.5 (5.0-9.0); UMIC TRIGGER UACC YES; Urine Blood Small (1+) (Negative); Urine Ketones Negative (Negative); Urine Protein 100 (2+) mg/dL (Neg-Trace)
--- NOTE | 2023-02-01 15:54 | PC.NURSE ---
pt has a 2 inch area of erythema on the back of his head, unknown cause
--- NOTE | 2023-02-01 15:58 | PC.NURSE ---
this nurse present on phone call with JOCELYNE Lopez and pt HCP Jonnathan- goals of care discussed , HCP statd that pt would not want any invasive, or extraordinary measures taken. PA discussed risks and benefits of CTA study- HCP and PA agreed not to perform this test in an effort to preserve pt current renal function. HCP made aware that pt is to be seen by hospitalist for potential admission.
[2023-02-01] MEDS: LORazepam 2 MG/ML VIAL 0.25 MG IVPUSH (16:04)
[2023-02-01 16:05] VITALS: BP 133/60; PULSE 58; RESP 16; O2SAT 98
--- NOTE | 2023-02-01 16:11 | PC.NURSE ---
pt medicated per MAr for increased agitation- seizure precautions in place
[2023-02-01 16:17] LABS: Bacteria Urine 4+ (None Seen); Granular Casts Urine Present; Squamous Epithelial Cell Urine 0-2 /HPF (0-2); UACC Culture Trigger YES; WBC Urine >50 /HPF (0-5)
[2023-02-01] MEDS: cefTRIAXone sodium 1 GM in 0.9 % Sodium Chloride 50 ML IV (16:42)
[2023-02-01 17:10] LABS: Lactic Acid 0.9 mmol/L (0.5-2.0)
--- NOTE | 2023-02-01 17:45 | PC.NURSE ---
HCP katja contacted- ETA 20min- provider aware
--- NOTE | 2023-02-01 18:01 | PHA.MEDREC ---
Pharmacy Consult ? Medication Reconciliation Pharmacy has completed the medication reconciliation. Med list from [facility].
--- NOTE | 2023-02-01 18:40 | PC.NURSE ---
this nurse spoke with pt HCp/ nephew RAÚL Venegas that last time he visited with pt was speaking in full sentences, and able to move all extremities independently. Theo sts that pt was diagnosed with alzheimers dementia approximately 6 months ago. Theo heck pt has declined rapidly, losing quite a bit of weight since his diagnosis and was making it known to Theo that he does not want to live with the diagnosis . Pt has asked Theo as a well as pt sister to bring him a gun. Hospitalist/ provider to meet with family to discuss care going forward.
--- NOTE | 2023-02-01 19:40 | PC.NURSE ---
Addendum entered by Melissa Peterson LPN 02/01/23 20:07: pt moved to ED6, camera placed at bedside for safety mouth care given Original Note: MD Perez at bedside discussing admission/ plan of care
--- NOTE | 2023-02-01 20:28 | PC.NURSE ---
spoke with Nurse, Maira advised pt is going to be admitted for ABX for UTI.
--- NOTE | 2023-02-01 20:39 | PC.NURSE ---
report given to JACI Del Toro pt to be transferred to room 352
--- NOTE | 2023-02-01 20:40 | P.HPHOSP_ITS ---
History of Present Illness Date of Service: 02/01/23 Chief Complaint: Seizure This is a 77-year-old male with pertinent history of chronic subdural hematoma, BPH, coronary artery disease, chronic indwelling Gray catheter due to urinary retention, Alzheimer's dementia, chronic kidney disease, iam-krsdqsn-xkyaugacf diabetes mellitus, right eye ptosis who was sent to the emergency department for evaluation of weakness, possible facial droop and found to have a seizure. Unable to obtain history from the patient as patient is nonverbal. Not following any commands. As per the nephew at bedside, patient has been rapidly declining over the last 1 month. At baseline, patient is not able to comprehend or have a meaningful conversation. As per EMS, patient had an episode of seizure prior to arrival at the ER. As per the ER provider, patient appeared to be seizing at the time of arrival and was given IV Ativan and loaded with IV Keppra. No history of seizure as per the nephew. Unable to obtain review of systems. Review of Systems 2 Review of Systems: Yes Unobtainable due to mental status PMFSH Medical History Chronic kidney disease Chronic indwelling Gray catheter Coronary artery disease Alzheimer's dementia Chronic subdural hematoma Diabetes mellitus type 2, noninsulin dependent Pertinent family history: Unable to obtain Social History Alcohol intake: never Patient Tobacco Use Status: Tobacco use Unknown Advance Directives: No Advance Directives Information Provided: No Meds Allergies Allergy/AdvReac Type Severity Reaction Status Date / Time atorvastatin Allergy Unknown Verified 01/24/23 02:39 glipizide Allergy Unknown Verified 01/24/23 02:39 Active Medications: Current Medications Acetaminophen (Acetaminophen 325 Mg Tablet) 650 mg PO Q6H PRN PRN Reason: Pain, Mild (Pain Scale 1-3) Ceftriaxone Sodium 1 gm/ (Sodium Chloride) 50 mls @ 100 mls/hr IV Q24H BLAKE Melatonin (Melatonin 3 Mg Tablet) 6 mg PO BEDTIME PRN PRN Reason: Insomnia Ondansetron HCl (Ondansetron Hcl 4 Mg/2 Ml Vial) 4 mg IVPUSH Q8H PRN PRN Reason: Nausea and Vomiting Sodium Chloride (0.9 % Sodium Chloride Flush 3 Ml Syringe) 3 ml IVFLUSH QSHIFT [facility] Home Medications Medication Instructions Recorded Confirmed Last Taken Type acetaminophen 325 mg tablet 650 mg PO Q4H PRN Fever Or Pain 02/01/23 02/01/23 Unknown History (Tylenol) acetaminophen 650 mg rectal 650 mg NV Q4H PRN Fever Or Pain 02/01/23 02/01/23 Unknown History suppository atorvastatin 40 mg tablet 40 mg PO BEDTIME 02/01/23 02/01/23 Unknown History bisacodyl 10 mg rectal suppository 10 mg NV DAILY PRN Constipation 02/01/23 02/01/23 Unknown History docusate sodium 100 mg capsule 100 mg PO DAILY 02/01/23 02/01/23 Unknown History magnesium hydroxide 400 mg/5 mL 30 ml PO DAILY PRN Constipation 02/01/23 02/01/23 Unknown History oral suspension (Milk of Magnesia) melatonin 3 mg tablet 3 mg PO BEDTIME 02/01/23 02/01/23 Unknown History naloxone 4 mg/actuation nasal 4 mg intranasal Q3M PRN Opioid 02/01/23 02/01/23 Unknown History spray (Narcan) Overdose sodium phosphates 19 gram-7 118 ml NV DAILY PRN Constipation 02/01/23 02/01/23 Unknown History gram/118 mL enema (Fleet Enema) tamsulosin 0.4 mg capsule 0.4 mg PO BEDTIME 02/01/23 02/01/23 Unknown History Physical Exam 2 Vital Signs and Narrative: Vital Signs: Last Vital Signs Temp 97.8 F 02/01/23 14:57 Pulse 58 02/01/23 16:05 Resp 16 02/01/23 16:05 BP 133/60 02/01/23 16:05 Pulse Ox 98 02/01/23 16:05 O2 Del Method Room Air 02/01/23 16:05 BMI result Body Mass Index 23.0 Elderly male lying in bed in no distress Neck supple, no JVD, right eye ptosis Regular rate and rhythm, S1-S2 heard Regular breath sounds bilaterally, no wheezing or crackles appreciated Abdomen soft nontender, no guarding, no rigidity Patient is awake and nonverbal, not following commands, unable to have a conversation No pedal edema Results Labs 02/01/23 15:04 02/01/23 15:04 Labs: Laboratory Results - last 24 hr 02/01/23 02/01/23 02/01/23 14:45 15:04 15:42 MCV 90.9 MCH 30.3 MCHC 33.3 RDW 14.0 Plt Count 173 MPV 10.0 Immature Gran % (Auto) 0.3 Neut % (Auto) 85.4 H Lymph % (Auto) 8.1 L [place] % (Auto) 4.6 Eos % (Auto) 1.1 Baso % (Auto) 0.5 Lymph # (Auto) 0.8 L [place] # (Auto) 0.5 Eos # (Auto) 0.1 Baso # (Auto) 0.1 Abs Immat Gran (auto) 0.03 Absolute Neuts (auto) 8.7 H Absolute Nucleated RBC 0.000 Nucleated RBC % (auto) 0.0 PT 11.6 Whole Blood PT 14.1 H INR 1.0 Whole Blood INR 1.2 H APTT 30.4 Anion Gap 12 Estim Creat Clear Calc 55.4 Estimated GFR 59 Random Glucose 118 H Lactic Acid Calcium 9.2 D Total Creatine Kinase 34 L Urine Color Yellow Urine Appearance Turbid Urine pH 5.5 Ur Specific [place] 1.020 Urine Protein 100 (2+) H Urine Glucose (UA) Negative Urine Ketones Negative Urine Blood Small (1+) H Urine Nitrite Positive H Ur Leukocyte Esterase Large (3+) H Urine RBC 3-5 H Urine WBC >50 Ur Squamous Epith Cells 0-2 Urine Bacteria 4+ Hyaline Casts 6-10 Granular Casts Present 02/01/23 16:41 MCV MCH MCHC RDW Plt Count MPV Immature Gran % (Auto) Neut % (Auto) Lymph % (Auto) [place] % (Auto) Eos % (Auto) Baso % (Auto) Lymph # (Auto) [place] # (Auto) Eos # (Auto) Baso # (Auto) Abs Immat Gran (auto) Absolute Neuts (auto) Absolute Nucleated RBC Nucleated RBC % (auto) PT Whole Blood PT INR Whole Blood INR APTT Anion Gap Estim Creat Clear Calc Estimated GFR Random Glucose Lactic Acid 0.9 Calcium Total Creatine Kinase Urine Color Urine Appearance Urine pH Ur Specific [place] Urine Protein Urine Glucose (UA) Urine Ketones Urine Blood Urine Nitrite Ur Leukocyte Esterase Urine RBC Urine WBC Ur Squamous Epith Cells Urine Bacteria Hyaline Casts Granular Casts Imaging Radiologist's Impressions: Impressions Head CT 02/01/23 15:17 IMPRESSION: 1. No evidence of acute intracranial hemorrhage or edematous territorial infarction. 2. Chronic bihemispheric subdural collections with changes of bilateral middle meningeal artery embolization. 3. Moderate underlying microangiopathy and generalized cerebral volume loss. 4. Small right parietal scalp hematoma. No associated osseous abnormalities. This critical result was discussed with JOCELYNE Ruiz at 15:40 on 02/01/2023 and it was ascertained that the content and urgency of the report was understood at the time of direct communication. Assessment and Plan (1) Seizure: Status: Acute (2) Acute UTI: Status: Acute Plan This is a 77-year-old male with pertinent history of chronic subdural hematoma, BPH, coronary artery disease, chronic indwelling Gray catheter due to urinary retention, Alzheimer's dementia, chronic kidney disease, rel-fsdmidj-weydpelit diabetes mellitus, right eye ptosis who was sent to the emergency department for evaluation of weakness, possible facial droop and found to have a seizure. #. Seizure, new onset: Loaded with IV Keppra in the ER. Will continue to monitor. Consulted Neurology, appreciate assistance. Will obtain MRI and EEG #. Acute UTI in a patient with chronic indwelling Gray: Initiating empiric IV antibiotics. No sepsis. Follow urine culture #. Alzheimer's dementia: Monitor mentation and maintain sleep-wake cycle #. Chronic kidney disease: Creatinine at baseline. Monitor and avoid nephrotoxins #. Cpj-pwnsoua-gfuospqcg diabetes mellitus: Initiating Accu-Cheks with sliding scale insulin every 6 hours #. Coronary artery disease: On high-intensity statin. Not on antiplatelet agent #. Chronic subdural hematoma: The nephew who is the healthcare proxy and power of attorney law clerk refused CTA in the ER for further evaluation. Not a candidate for neurosurgery as per patient's wishes. Conservative management Med rec pending DVT prophylaxis: Mechanical DNR/DNI. Discussed with nephew at bedside Admit as inpatient and will require two night minimum hospital stay for IV antibiotics, evaluation and management of new onset seizure (as above), which is not possible in a lesser acute setting. Specialist consult pending Quality Stroke Does the patient have a stroke diagnosis?: No VTE Prior VTE?: No VTE Risk Level:: Medical - moderate - high VTE Device Contraindication: N/A - Device Ordered VTE Drug Contraindication: Treatment Not Indicated
[2023-02-01 21:05] LABS: Glucose, Whole Blood 248 mg/dL (60-115)
[2023-02-01 21:40] VITALS: BP 149/67; PULSE 61; RESP 14; TEMP 36.4; O2SAT 100
[2023-02-01 21:42] LABS: Glucose, Whole Blood 89 mg/dL (60-115)
[2023-02-01 22:58] VITALS: BP 138/72; PULSE 72; RESP 16; TEMP 37; O2SAT 96
[2023-02-01 23:47] LABS: Glucose, Whole Blood 100 mg/dL (60-115)
[2023-02-01] MEDS: 0.9 % Sodium Chloride Flush 3 ML SYRINGE IVFLUSH (23:48)
--- NOTE | 2023-02-02 | EEG_ITS ---
This is a 16-channel EEG with an EKG lead. The patient is reported confused, unresponsive, and restless. Background EEG rhythm is low amplitude fast with some muscle and lead artifacts. No definite sharp wave spikes or paroxysmal tendencies noted. Cardiac lead does not reveal any significant abnormality. Photic stimulation and hyperventilation were not performed. IMPRESSION: No significant abnormality to suggest seizure disorder was noted on this EEG. MD TIMO Watson/DIANE / [id number]
[2023-02-02 03:21] VITALS: BP 134/65; PULSE 65; RESP 14; TEMP 36; O2SAT 98
[2023-02-02 05:36] LABS: Glucose, Whole Blood 104 mg/dL (60-115)
[2023-02-02 06:48] LABS: Basophils Absolute Auto 0.1 X10*3/uL (0.0-0.2); Basophils Percent Auto 0.7 % (0-2); Eosinophils Absolute Auto 0.1 X10*3/uL (0.0-0.4); Hematocrit 37.5 % (42.0-52.0); Hemoglobin 12.1 g/dl (14.0-18.0); Imm Gran Abs Auto 0.03 X10*3/uL (0.00-0.03); Imm Gran Pct Auto 0.4 % (0.0-0.4); Lymphocytes Absolute Auto 0.6 X10*3/uL (1.2-4.9); Lymphocytes Percent Auto 6.7 % (20-40); MANUAL DIFF FLAG NO; Mean Corpuscular HGB Conc 32.3 g/dl (31.0-36.0); Mean Corpuscular Hemoglobin 29.8 pg (27.0-33.0); Mean Corpuscular Volume 92.4 fL (80.0-98.0); Mean Platelet Volume 9.7 fL (9.4-12.4); Monocytes Absolute Auto 0.5 X10*3/uL (0.1-1.2); Monocytes Percent Auto 6.1 % (2-11); Neutrophils Percent Auto 85.1 % (45-73); Platelet Count 154 X10*3/uL (160-400); Red Blood Count 4.06 X10*6/uL (4.60-5.80); Red Cell Distribution Width 14.1 % (11.0-16.0); White Blood Count 8.3 X10*3/uL (4.8-10.8)
[2023-02-02 07:10] VITALS: BP 142/67; PULSE 63; RESP 16; TEMP 36.1; O2SAT 96
[2023-02-02 07:42] LABS: Anion Gap 11 (12-20); Blood Urea Nitrogen 22 mg/dL (9-16); Calcium 9.1 mg/dL (8.4-10.2); Carbon Dioxide 27 mmol/L (22-29); Chloride 107 mmol/L (96-108); Creatinine Clr Calc Pharmacy 58.3; Estimated Glomerular Filt Rate > 60; Glucose Random 95 mg/dL (60-115); Potassium 3.4 mmol/L (3.3-5.1); Sodium 142 mmol/L (135-145)
--- NOTE | 2023-02-02 08:11 | HO.PM.IMPN ---
Subjective Subjective Date of Service: 02/02/23 Review of Systems Follow up seizure nonverbal Physical Exam Vital Signs: Vital Signs: Last Vital Signs Temp 97.0 F 02/02/23 07:10 Pulse 63 02/02/23 07:10 Resp 16 02/02/23 07:10 BP 142/67 H 02/02/23 07:10 Pulse Ox 96 02/02/23 07:10 O2 Del Method Room Air 02/02/23 07:10 BMI result Body Mass Index 23.0 resting in bed LSCTA +BS, zbd soft no edema Objective Data Active Medications Acetaminophen (Acetaminophen 325 Mg Tablet) 650 mg PO Q6H PRN PRN Reason: Pain, Mild (Pain Scale 1-3) Dextrose (Dextrose 50 % 25 Gm/50 Ml Syringe) 25 gm IVPUSH Q15M PRN; Protocol PRN Reason: per Hypoglycemia Standing Ord. Glucose (Glucose Gel 15 Gm Gel..Gram.) 15 gm PO Q15M PRN; Protocol PRN Reason: per Hypoglycemia Standing Ord. Ceftriaxone Sodium 1 gm/ (Sodium Chloride) 50 mls @ 100 mls/hr IV Q24H [facility] Insulin Human Lispro (Insulin Lispro 100 Unit/Ml 3 Ml Vial) 0 unit SUBCUT Q6H [facility]; Protocol Last Admin: 02/02/23 05:41 Dose: Not Given Documented By: KEILA Non-Admin Reason: No Insulin Coverage Melatonin (Melatonin 3 Mg Tablet) 6 mg PO BEDTIME PRN PRN Reason: Insomnia Ondansetron HCl (Ondansetron Hcl 4 Mg/2 Ml Vial) 4 mg IVPUSH Q8H PRN PRN Reason: Nausea and Vomiting Sodium Chloride (0.9 % Sodium Chloride Flush 3 Ml Syringe) 3 ml IVFLUSH QSHIFT [facility] Last Admin: 02/01/23 23:48 Dose: 3 ml Documented By: KEILA Labs 02/02/23 05:48 02/02/23 05:48 Labs: Laboratory Results - last 24 hr 02/01/23 02/01/23 02/01/23 14:45 14:46 15:04 MCV 90.9 MCH 30.3 MCHC 33.3 RDW 14.0 Plt Count 173 MPV 10.0 Immature Gran % (Auto) 0.3 Neut % (Auto) 85.4 H Lymph % (Auto) 8.1 L [place]ck[place] % (Auto) 4.6 Eos % (Auto) 1.1 Baso % (Auto) 0.5 Lymph # (Auto) 0.8 L [place] # (Auto) 0.5 Eos # (Auto) 0.1 Baso # (Auto) 0.1 Abs Immat Gran (auto) 0.03 Absolute Neuts (auto) 8.7 H Absolute Nucleated RBC 0.000 Nucleated RBC % (auto) 0.0 PT 11.6 Whole Blood PT 14.1 H INR 1.0 Whole Blood INR 1.2 H APTT 30.4 Anion Gap 12 Estim Creat Clear Calc 55.4 Estimated GFR 59 POC Glucose 248 H Random Glucose 118 H Lactic Acid Calcium 9.2 D Total Creatine Kinase 34 L Urine Color Urine Appearance Urine pH Ur Specific [place] Urine Protein Urine Glucose (UA) Urine Ketones Urine Blood Urine Nitrite Ur Leukocyte Esterase Urine RBC Urine WBC Ur Squamous Epith Cells Urine Bacteria Hyaline Casts Granular Casts 02/01/23 02/01/23 02/01/23 15:42 16:41 21:39 MCV MCH MCHC RDW Plt Count MPV Immature Gran % (Auto) Neut % (Auto) Lymph % (Auto) Crockett % (Auto) Eos % (Auto) Baso % (Auto) Lymph # (Auto) Crock[place] # (Auto) Eos # (Auto) Baso # (Auto) Abs Immat Gran (auto) Absolute Neuts (auto) Absolute Nucleated RBC Nucleated RBC % (auto) PT Whole Blood PT INR Whole Blood INR APTT Anion Gap Estim Creat Clear Calc Estimated GFR POC Glucose 89 Random Glucose Lactic Acid 0.9 Calcium Total Creatine Kinase Urine Color Yellow Urine Appearance Turbid Urine pH 5.5 Ur Specific [place] 1.020 Urine Protein 100 (2+) H Urine Glucose (UA) Negative Urine Ketones Negative Urine Blood Small (1+) H Urine Nitrite Positive H Ur Leukocyte Esterase Large (3+) H Urine RBC 3-5 H Urine WBC >50 Ur Squamous Epith Cells 0-2 Urine Bacteria 4+ Hyaline Casts 6-10 Granular Casts Present 02/01/23 02/02/23 02/02/23 23:44 05:32 05:48 MCV 92.4 MCH 29.8 MCHC 32.3 RDW 14.1 Plt Count 154 L MPV 9.7 Immature Gran % (Auto) 0.4 Neut % (Auto) 85.1 H Lymph % (Auto) 6.7 L Crock[place] % (Auto) 6.1 Eos % (Auto) 1.0 Baso % (Auto) 0.7 Lymph # (Auto) 0.6 L Crock[place] # (Auto) 0.5 Eos # (Auto) 0.1 Baso # (Auto) 0.1 Abs Immat Gran (auto) 0.03 Absolute Neuts (auto) 7.0 Absolute Nucleated RBC 0.000 Nucleated RBC % (auto) 0.0 PT Whole Blood PT INR Whole Blood INR APTT Anion Gap 11 L Estim Creat Clear Calc 58.3 Estimated GFR > 60 POC Glucose 100 104 Random Glucose 95 Lactic Acid Calcium 9.1 Total Creatine Kinase Urine Color Urine Appearance Urine pH Ur Specific [place] Urine Protein Urine Glucose (UA) Urine Ketones Urine Blood Urine Nitrite Ur Leukocyte Esterase Urine RBC Urine WBC Ur Squamous Epith Cells Urine Bacteria Hyaline Casts Granular Casts Assessment and Plan (1) Chronic kidney disease: Status: Acute (2) Seizure: Status: Acute Plan This is a 77-year-old male with pertinent history of chronic subdural hematoma, BPH, coronary artery disease, 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 Seizure, new onset Loaded with IV Keppra in the ER. Will continue to monitor. Consulted Neurology Will obtain MRI and EEG Acute UTI in a patient with chronic indwelling Gray Initiating empiric IV antibiotics. No sepsis. Follow urine culture Alzheimer's dementia Monitor mentation and maintain sleep-wake cycle Chronic kidney disease Creatinine at baseline. Monitor and avoid nephrotoxins Wqf-xrgynpn-krkmhiovq diabetes mellitus Initiating Accu-Cheks with sliding scale insulin every 6 hours Coronary artery disease On high-intensity statin. Not on antiplatelet agent Chronic subdural hematoma Not a candidate for neurosurgery as per patient's wishes. Conservative management DVT prophylaxis: Mechanical Attending Dr. Fleming DNR/DNI. Discussed with nephew at bedside continue hospital stay for IV antibiotics, evaluation and management of new onset seizure (as above), which is not possible in a lesser acute setting. Specialist consult pending Quality Stroke Does the patient have a stroke diagnosis?: No VTE Prior VTE?: No VTE Risk Level:: Medical - moderate - high VTE Device Contraindication: N/A - Device Ordered VTE Drug Contraindication: Treatment Not Indicated
[2023-02-02] MEDS: 0.9 % Sodium Chloride Flush 3 ML SYRINGE IVFLUSH ×2 (09:19→16:54)
--- NOTE | 2023-02-02 09:48 | MHC.CM.PN ---
[facility] dcd
[2023-02-02 11:35] LABS: Glucose, Whole Blood 120 mg/dL (60-115)
[2023-02-02 11:41] VITALS: BP 144/68; PULSE 68; RESP 16; TEMP 36.7; O2SAT 96
[2023-02-02 12:30] VITALS: BMI 23.0
--- NOTE | 2023-02-02 12:39 | MHC.CLN ---
NUTRITION CURRENTLY NPO. PER [facility], NO ARTIFICIAL NUTRITION. NUTRITION DX NON SEVERE MALNUTRITION IN THE CONTEXT OF CHRONIC ILLNESS. SIGNIFICANT WEIGHT LOSS -17.5% X 2 MONTHS. MILD DEPLETION OF BODY FAT AND MUSCLE MASS NOTED. JIMENEZ=11 WITH REDNESS TO COCCYX. AT RISK FOR SKIN BREAKDOWN. FOLLOW FOR DIET ADVANCEMENT AND ADD SUPPLEMENTS ABLE. MONITOR SKIN INTEGRITY. SEE CLINICAL NUTRITION ASSESSMENT 02/02/23.
--- NOTE | 2023-02-02 13:01 | P.CDIM_ITS ---
PROVIDER RESPONSE TEXT: To clarify, the appropriate diagnosis supported by the clinical indicators: Other (explain): CKD 3 QUERY TEXT: PHYSICIAN'S DOCUMENTATION REQUEST Date of Query: 02/02/2023 10:58 AM EST Patient Name: Deepak Anderson Admit Date: 02/02/2023 Dear Jacque Carrillo, A review of the medical record indicates additional documentation may be needed. Please review below and update the documentation accordingly. Clinical Indicators: On 02/01/23: BUN 27 Creatinine 1.20 Est GFR 59 Per Hospitalist Progress Note 02/02/23: Chronic kidney disease Creatinine at baseline. Monitor and avoid nephrotoxins Please clarify which of the following accurately represents the patient's renal status: CKD, please provide stage Other (explain) Clinically unable to determine (explain) Thank you, Mariangel Cevallos RN Use of terms such as suspected, likely, concern for, or probable (associated with a specific diagnosi s that is being evaluated, monitored, or treated as if it exists) are acceptable and can be coded in the inpatient se tting, when documented at the time of discharge. Please use your independent medical judgment in providing your response. THIS QUERY IS PART OF THE PERMANENT MEDICAL RECORD
[2023-02-02 16:00] VITALS: BP 163/69; PULSE 62; RESP 20; TEMP 36; O2SAT 97
[2023-02-02] MEDS: cefTRIAXone sodium 1 GM in 0.9 % Sodium Chloride 50 ML IV (16:54)
[2023-02-02 18:02] LABS: Glucose, Whole Blood 105 mg/dL (60-115)
[2023-02-02 19:11] VITALS: BP 153/67; PULSE 76; RESP 17; TEMP 36.4; O2SAT 98
[2023-02-03] VITALS: BP 130/62; PULSE 72; RESP 17; TEMP 36.2; O2SAT 98
[2023-02-03] MEDS: 0.9 % Sodium Chloride Flush 3 ML SYRINGE IVFLUSH ×2 (00:13→11:09)
[2023-02-03 00:15] LABS: Glucose, Whole Blood 98 mg/dL (60-115)
[2023-02-03 03:21] VITALS: BP 153/94; PULSE 76; RESP 18; TEMP 36.1; O2SAT 98
[2023-02-03 06:05] LABS: Glucose, Whole Blood 82 mg/dL (60-115)
[2023-02-03 07:30] VITALS: BP 148/70; PULSE 66; RESP 18; TEMP 36.3; O2SAT 99
--- NOTE | 2023-02-03 09:38 | P.PNIM_ITS ---
Subjective Subjective Date of Service: 02/03/23 Review of Systems Follow up seizure nonverbal Physical Exam 2 Vital Signs: Vital Signs: Last Vital Signs Temp 97.3 F 02/03/23 07:30 Pulse 66 02/03/23 07:30 Resp 18 02/03/23 07:30 BP 148/70 H 02/03/23 07:30 Pulse Ox 99 02/03/23 07:30 O2 Del Method Room Air 02/03/23 07:30 BMI result Body Mass Index 23.0 Appearing in no acute distress lung sounds are clear to auscultation heart regular rate rhythm, clear S1, S2 positive bowel sounds, abdomen is soft, nontender neuro patient is alert , confused Objective Data Active Medications Acetaminophen (Acetaminophen 325 Mg Tablet) 650 mg PO Q6H PRN PRN Reason: Pain, Mild (Pain Scale 1-3) Dextrose (Dextrose 50 % 25 Gm/50 Ml Syringe) 25 gm IVPUSH Q15M PRN; Protocol PRN Reason: per Hypoglycemia Standing Ord. Glucose (Glucose Gel 15 Gm Gel..Gram.) 15 gm PO Q15M PRN; Protocol PRN Reason: per Hypoglycemia Standing Ord. Ceftriaxone Sodium 1 gm/ (Sodium Chloride) 50 mls @ 100 mls/hr IV Q24H [facility] Last Infusion: 02/02/23 17:33 Dose: Infused Documented By: CK Insulin Human Lispro (Insulin Lispro 100 Unit/Ml 3 Ml Vial) 0 unit SUBCUT Q6H [facility]; Protocol Last Admin: 02/03/23 06:08 Dose: Not Given Documented By: KEILA Non-Admin Reason: No Insulin Coverage Melatonin (Melatonin 3 Mg Tablet) 6 mg PO BEDTIME PRN PRN Reason: Insomnia Ondansetron HCl (Ondansetron Hcl 4 Mg/2 Ml Vial) 4 mg IVPUSH Q8H PRN PRN Reason: Nausea and Vomiting Sodium Chloride (0.9 % Sodium Chloride Flush 3 Ml Syringe) 3 ml IVFLUSH QSHIFT [facility] Last Admin: 02/03/23 00:13 Dose: 3 ml Documented By: KEILA Labs 02/02/23 05:48 02/02/23 05:48 Labs: Laboratory Results - last 24 hr 02/02/23 02/02/23 02/03/23 11:31 17:55 00:11 POC Glucose 120 H 105 98 02/03/23 06:01 POC Glucose 82 Microbiology Microbiology Results: Microbiology 02/01/23 16:27 Urine Culture - Preliminary Urine clean catch - Urine holly top Klebsiella pneumoniae 02/01/23 16:41 Blood Culture - Preliminary Blood - Venous No growth after 24 hours. 02/01/23 16:41 Blood Culture - Preliminary Blood - Venous No growth after 24 hours. 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 Seizure, new onset Loaded with IV Keppra in the ER. Will continue to monitor. Consulted Neurology, pending MRI Showing no acute intracranial abnormal EEG results pending speech eval pending Klebsiella UTI in a patient with chronic indwelling Gray continue Rocephin No sepsis. Alzheimer's dementia Monitor mentation and maintain sleep-wake cycle Chronic kidney disease Creatinine at baseline. Monitor and avoid nephrotoxins Fln-ykyzpvv-qyumbtloo diabetes mellitus Initiating Accu-Cheks with sliding scale insulin every 6 hours Coronary artery disease On high-intensity statin. Not on antiplatelet agent Chronic subdural hematoma Not a candidate for neurosurgery as per patient's wishes. Conservative management DVT prophylaxis: Mechanical Attending Dr. Fleming DNR/DNI. Discussed with nephew at bedside continue hospital stay for IV antibiotics, evaluation and management of new onset seizure (as above), which is not possible in a lesser acute setting. Specialist consult pending Quality Stroke Does the patient have a stroke diagnosis?: No VTE Prior VTE?: No VTE Risk Level:: Medical - moderate - high VTE Device Contraindication: N/A - Device Ordered VTE Drug Contraindication: Treatment Not Indicated
[2023-02-03 11:21] LABS: Glucose, Whole Blood 76 mg/dL (60-115)
--- NOTE | 2023-02-03 12:08 | MHC.SL.SWA ---
Speech Pathologist Impression: Risk of Aspiration Due to: Reduced Cognition Dysphasia Diet Status: Liquid Consistency and Strategies for Safe Swallow: Liquid Intake Recommendation: Thin Liquid Intake Strategies: Small Sips No Straws Solid Food Consistency: Dietary Recommendations: Grnd/Mech Altered (NDD2) Oral Medication Intake: Crushed with Puree Please contact the pharmacy regarding appropriate crushable or liquid drug formulations that are available whenever modified delivery is recommended. Compensatory Strategies and Precautions to be Taken for Safe Swallow: Sitting Upright (90 deg) No Straw Liquids from Cup Small Bites and Sips Alternate Liquids/Solids Rate of Ingestion Change Avoid Specific Foods Supervision While Eating and Drinking for Safe Swallow: Intermittent Supervision Foods to Avoid: Swallowing Recommended Treatments: Compens. Strategy Educat. Recommendation for Speech: Inpatient Speech Therapy Comment: Recommend initiate diet of Ground/Mech Altered Solids (NDD2) with Thin Liquids. Medications Whole with Puree, or Crushed, as tolerated. Assist with tray set-up and initiation, intermittent supervision. RECORD PRESS TENDER will continue to follow. Timeline to reassess: PRN Frame Builder Clinican/Clinical Fellow: No Supervisory Statement: I have reviewed and agree with the student/clinical fellow's documentation: N/A Speech Language Pathologist: Srinivas Mejias M.A., [facility]-RECORD PRESS TENDER
--- NOTE | 2023-02-03 12:55 | MHC.CM.PN ---
pt lives with wifge is independent will nbot need servies when dcd
--- NOTE | 2023-02-03 14:05 | PM.NEUROCN ---
History of Present Illness Data of Consult Service Date: 02/03/23 Primary Care Provider: Alvaro Mitchell MD [facility] Reason for consult: Seizure disorder 77 years old man with underlying history of dementia and bilateral subdural hemorrhages I was asked to see for seizure disorder. He was unable to provide any history. Nature of seizures was unclear. Review of Systems Review of Systems: Could not be done with him PMFSH Past Medical History Medical History Chronic kidney disease Chronic indwelling Gray catheter Coronary artery disease Alzheimer's dementia Chronic subdural hematoma Diabetes mellitus type 2, noninsulin dependent Social History Household Members: None Housing: [facility] Do you presently have visiting nurse or other home services: No Alcohol intake: never Patient Tobacco Use Status: Tobacco use Unknown service: No Meds Allergies Allergy/AdvReac Type Severity Reaction Status Date / Time atorvastatin Allergy Unknown Verified 01/24/23 02:39 glipizide Allergy Unknown Verified 01/24/23 02:39 Active Medications: Current Medications Acetaminophen (Acetaminophen 325 Mg Tablet) 650 mg PO Q6H PRN PRN Reason: Pain, Mild (Pain Scale 1-3) Dextrose (Dextrose 50 % 25 Gm/50 Ml Syringe) 25 gm IVPUSH Q15M PRN; Protocol PRN Reason: per Hypoglycemia Standing Ord. Glucose (Glucose Gel 15 Gm Gel..Gram.) 15 gm PO Q15M PRN; Protocol PRN Reason: per Hypoglycemia Standing Ord. Ceftriaxone Sodium 1 gm/ (Sodium Chloride) 50 mls @ 100 mls/hr IV Q24H [facility] Last Infusion: 02/02/23 17:33 Dose: Infused Dextrose/Sodium Chloride (D5ns) 1,000 mls @ 80 mls/hr IVCONT .[id number] [facility] Insulin Human Lispro (Insulin Lispro 100 Unit/Ml 3 Ml Vial) 0 unit SUBCUT QIDACHS [facility]; Protocol Last Admin: 02/03/23 12:13 Dose: Not Given Melatonin (Melatonin 3 Mg Tablet) 6 mg PO BEDTIME PRN PRN Reason: Insomnia Ondansetron HCl (Ondansetron Hcl 4 Mg/2 Ml Vial) 4 mg IVPUSH Q8H PRN PRN Reason: Nausea and Vomiting Sodium Chloride (0.9 % Sodium Chloride Flush 3 Ml Syringe) 3 ml IVFLUSH QSHIFT [facility] Last Admin: 02/03/23 11:09 Dose: 3 ml Home Medications Medication Instructions Recorded Confirmed Last Taken Type acetaminophen 325 mg tablet 650 mg PO Q4H PRN Fever Or Pain 02/01/23 02/01/23 Unknown History (Tylenol) acetaminophen 650 mg rectal 650 mg VA Q4H PRN Fever Or Pain 02/01/23 02/01/23 Unknown History suppository atorvastatin 40 mg tablet 40 mg PO BEDTIME 02/01/23 02/01/23 Unknown History bisacodyl 10 mg rectal suppository 10 mg VA DAILY PRN Constipation 02/01/23 02/01/23 Unknown History docusate sodium 100 mg capsule 100 mg PO DAILY 02/01/23 02/01/23 Unknown History magnesium hydroxide 400 mg/5 mL 30 ml PO DAILY PRN Constipation 02/01/23 02/01/23 Unknown History oral suspension (Milk of Magnesia) melatonin 3 mg tablet 3 mg PO BEDTIME 02/01/23 02/01/23 Unknown History naloxone 4 mg/actuation nasal 4 mg intranasal Q3M PRN Opioid 02/01/23 02/01/23 Unknown History spray (Narcan) Overdose sodium phosphates 19 gram-7 118 ml VA DAILY PRN Constipation 02/01/23 02/01/23 Unknown History gram/118 mL enema (Fleet Enema) tamsulosin 0.4 mg capsule 0.4 mg PO BEDTIME 02/01/23 02/01/23 Unknown History Physical Exam Vital Signs: Vital Signs: Last Vital Signs Temp 97.3 F 02/03/23 07:30 Pulse 66 02/03/23 07:30 Resp 18 02/03/23 07:30 BP 148/70 H 02/03/23 07:30 Pulse Ox 99 02/03/23 07:30 O2 Del Method Room Air 02/03/23 07:30 BMI result Body Mass Index 23.0 Neuro: Other: He was alert and awake looking around made eye contact answered simple questions and follow simple commands. When I ask where he was? She stated that he was with seymour that were trying to take something away from him. Face was symmetrical. There was no nystagmus or gaze deviation. There was no obvious seizure-like activity. Legs reflexes were absent with flat plantars. Results Labs 02/02/23 05:48 02/02/23 05:48 Labs: Brain imaging revealed moderate to severe diffuse cerebral atrophy and chronic bilateral frontoparietal area small to medium size subdural fluid collection. Microbiology Microbiology Results: Microbiology 02/01/23 16:27 Urine clean catch - Urine holly top Urine Culture - Preliminary Klebsiella pneumoniae 02/01/23 16:41 Blood - Venous Blood Culture - Preliminary No growth after 24 hours. 02/01/23 16:41 Blood - Venous Blood Culture - Preliminary No growth after 24 hours. Assessment and Plan (1) Seizure: Status: Acute 77 years old man with multifactorial dementia resulting from significant cerebral degeneration and bilateral subdural hemorrhages, chronic, not resulting any mass effect and did not require any surgical intervention. This type of situation also put him at risk for seizures and I suggest covering him for seizure disorder with Keppra 500 mg twice a day. Procedures Date of Service Date of Service: 02/03/23
[2023-02-03] MEDS: Dextrose 5 % and 0.9 % NaCl 1,000 ML 80 ML IVCONT (14:08)
--- NOTE | 2023-02-03 15:19 | MHC.CM.PN ---
pt to return to [facility] today at 5 [facility]cp notified of dc
--- NOTE | 2023-02-03 15:21 | HO.WOUND ---
Wound Consult: Initial 77yr old male admitted to [facility] on? No02/01/23 19:40 - See progress notes and H&P for detailed history. Coccxy Etiology: Intact Tissue Wound Bed: red intact blanchable tissue - no pressure injury noted at this time - pt is at risk for injury breakdown gievn suspected malnutrition and bony prominences. Nutrition following. Evidence of MASD - IAD.(Moisture Associated Skin Damage Incontinence Associated Dermatitis) Drainage / Odor: None No Induration, Fluctuance or Warmth Pain: denies Goals of Treatment: ? Off Load Pressure and foam application Recommendations: 1. Turn and Reposition every 2 hours and as needed for patient comfort consider use of wedges available in the storeroom. 2. Off Load all bony prominences with use of pillows, wedges and heel boots. 3. Monitor for incontinence and moisture control. 4. Provide adequate and supplemental nutrition. 5. Order low air loss mattress. 6. Coccyx - Cleanse with routine cleansing - apply sacral foam pressing - peel back and assess Q shift change every 3 days and PRN. Off Load Pressure with pillows and frequent repositions and turns. Re-consult wound care Nurse for wound deterioration or wound changes.
[2023-02-03 15:41] VITALS: BP 145/67; PULSE 58; RESP 18; TEMP 36.5; O2SAT 99
--- NOTE | 2023-02-03 15:42 | P.DS_ITS ---
DS: Providers Provider Date of Service: 02/03/23 Date of admission: 02/01/23 19:40 Primary care physician: Alvaro Mitchell MD Consults: 02/01/23 19:40 Consult to Neurology Routine Consulting Provider: [facility] Reason for consultation: seizure 02/03/23 07:27 Consult to Neurology Routine Consulting Provider: [facility] Mary Jo barlow [facility] Reason for consultation: seizure 02/03/23 11:06 Consult to Wound Care Routine Reason for consultation: redness to coccyx and buttocks DS: Diagnosis Discharge Diagnosis (1) Chronic kidney disease: Status: Acute (2) Seizure: Status: Acute DS: Summary Hospital Course Hospital Course: History and physical as per admitting provider. 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 Unable to obtain history from the patient as patient is nonverbal. Not following any commands. As per the nephew at bedside, patient has been rapidly declining over the last 1 month. At baseline, patient is not able to comprehend or have a meaningful conversation. As per EMS, patient had an episode of seizure prior to arrival at the ER. As per the ER provider, patient appeared to be seizing at the time of arrival and was given IV Ativan and loaded with IV Keppra. No history of seizure as per the nephew. Unable to obtain review of systems. 77-year-old man with history of chronic subdural hematoma, Alzheimer's dementia treated for acute seizure. Brain MRI showed no acute intracranial abnormality. Seen evaluated by Neurology who recommended starting on Keppra 500 mg twice daily symptoms of seizure likely multifactorial secondary to dementia, signi ficant cerebral degeneration and subdural hemorrhages that are chronic. Did not have any seizures during his inpatient stay. He did have a UTI which culture grew out Klebsiella. He was treated with IV Rocephin and will return to the long-term care facility with 5 more days of Ceftin. Alzheimer's dementia Chronic kidney disease stage 3. Baseline Diabetes mellitus type 2. Continue medications Coronary artery disease. Non antiplatelet therapy due to chronic subdural hematoma, continue high-dose statin Chronic subdural hematoma not a candidate for neuro surgery, conservative management. Time Attestation Discharge coordination time: Greater than 30 minutes Quality: Safe Use of Opioids Does Pt have an Active Cancer Diagnosis on the Problem List?: No Quality: Stroke Does the patient have a stroke diagnosis?: No Physical Exam Vital Signs: Vital Signs: Last Vital Signs Temp 97.3 F 02/03/23 07:30 Pulse 66 02/03/23 07:30 Resp 18 02/03/23 07:30 BP 148/70 H 02/03/23 07:30 Pulse Ox 99 02/03/23 07:30 O2 Del Method Room Air 02/03/23 07:30 BMI result Body Mass Index 23.0 Appearing in no acute distress head is normocephalic atraumatic eyes pupils are PERRLA sclera is anicteric mouth throat mucous membranes are intact and moist neck is supple no lymphadenopathy, no JVD noted lung sounds are clear to auscultation heart regular rate rhythm, clear S1, S2 positive bowel sounds, abdomen is soft, nontender neuro patient is alert , confused DS: Data Data Completed and Pending Labs on day of discharge: Laboratory Results - last 24 hr 02/02/23 02/03/23 02/03/23 17:55 00:11 06:01 POC Glucose 105 98 82 02/03/23 11:15 POC Glucose 76 Preliminary micro results at discharge 02/01/23 16:27 Urine Culture - Preliminary Urine clean catch - Urine holly top Klebsiella pneumoniae 02/01/23 16:41 Blood Culture - Preliminary Blood - Venous No growth after 24 hours. 02/01/23 16:41 Blood Culture - Preliminary Blood - Venous No growth after 24 hours. Discharge Plan Discharge Anticipated Discharge Date/Time: 02/03/23 15:35 Patient Disposition: Xfer [facility] Discharge Diagnosis: Seizure Klebsiella UTI Referrals: [facility] [Other] - 1 Week Alvaro Mitchell MD [Primary Care Provider] - 1 Week Discharge Medications: New cefuroxime axetil 500 mg tablet 500 mg PO BID Qty: 10 0RF levetiracetam [Keppra] 500 mg tablet 500 mg PO BID Qty: 60 0RF Continued atorvastatin 40 mg Tablet 40 mg PO BEDTIME bisacodyl 10 mg Suppository 10 mg NJ DAILY PRN (Reason: Constipation) Fleet Enema 19-7 gram/118 mL Enema 118 ml NJ DAILY PRN (Reason: Constipation) docusate sodium 100 mg Capsule 100 mg PO DAILY acetaminophen [Tylenol] 325 mg Tablet 650 mg PO Q4H PRN (Reason: Fever Or Pain) acetaminophen 650 mg Suppository 650 mg NJ Q4H PRN (Reason: Fever Or Pain) melatonin 3 mg Tablet 3 mg PO BEDTIME magnesium hydroxide [Milk of Magnesia] 400 mg/5 mL Suspension 30 ml PO DAILY PRN (Reason: Constipation) tamsulosin 0.4 mg Capsule 0.4 mg PO BEDTIME naloxone [Narcan] 4 mg/actuation Clark,Non-Aerosol 4 mg INTRANASAL Q3M PRN (Reason: Opioid Overdose) Rx Instructions: spray 1 dose into ONE nostril; alternate nostrils w each dose until help arrives Discharge Orders: Discharge Order (Routine); Ordered 02/03/23 Ordered By: Jacque Carrillo Diet: Advance to usual diet Activity on Discharge: As tolerated Stand Alone Forms: Patient Portal Discharge page Care Plan Goals: seizure precautions and monitoring Health Concerns: Seizure Klebsiella UTI Plan of Treatment: Start taking Keppra 500mg Twice daily Assessment: See discharge summary
[2023-02-03 16:11] LABS: Glucose, Whole Blood 93 mg/dL (60-115)
[2023-02-03] MEDS: cefTRIAXone sodium 1 GM in 0.9 % Sodium Chloride 50 ML IV (16:20)
== END 2023-02-03 18:29 | disposition home or self-care (01) | DRG 699 ==
LOC: HO.ED 16:55 → HO.EDOVER 19:51 → HO.S3 20:28
PROVIDERS: Physician Assistant; Admitting Provider Student in an Organized Health Care Education/Training Program; Emergency Provider Emergency Medicine; PCP Family Medicine; Visit Provider Nurse Practitioner Acute Care
DX: T83.511A Infection and inflammatory reaction due to indwelling urethral catheter, initial encounter (principal); E44.0 Moderate protein-calorie malnutrition; R56.9 Unspecified convulsions; N39.0 Urinary tract infection, site not specified; Z66 Do not resuscitate; I25.10 Atherosclerotic heart disease of native coronary artery without angina pectoris; G30.9 Alzheimer's disease, unspecified; B96.1 Klebsiella pneumoniae [K. pneumoniae] as the cause of diseases classified elsewhere; F02.80 Dementia in other diseases classified elsewhere, unspecified severity, without behavioral disturbance, psychotic disturbance, mood disturbance, and anxiety; N40.1 Benign prostatic hyperplasia with lower urinary tract symptoms; R33.8 Other retention of urine; I12.9 Hypertensive chronic kidney disease with stage 1 through stage 4 chronic kidney disease, or unspecified chronic kidney disease; E78.5 Hyperlipidemia, unspecified; N18.30 Chronic kidney disease, stage 3 unspecified; E11.22 Type 2 diabetes mellitus with diabetic chronic kidney disease; Z68.23 Body mass index [BMI] 23.0-23.9, adult; Z79.899 Other long term (current) drug therapy
CPT/HCPCS: 36415; 70450; 70551; 80048; 81001; 81003; 82550; 82947; 83605; 84484; 85025; 85610; 85730; 87040; 87086; 87088; 87186; 92610; 93005; 95816; 99285; C1758; J0696; J1953; J2060

== ENCOUNTER → 2023-02-01 19:40 | Outpatient (BNV) | payer MEDICARE, SELFPAY | PROVIDERS: Admitting Provider Student in an Organized Health Care Education/Training Program; Emergency Provider Emergency Medicine; PCP Family Medicine; Visit Provider Student in an Organized Health Care Education/Training Program | DX: N18.30 Chronic kidney disease, stage 3 unspecified (principal); R56.9 Unspecified convulsions | CPT/HCPCS: 99222; 99232; 99239 ==